=== PATIENT | male | born 1940 | race Caucasian/White ===

== ENCOUNTER → 2017-09-30 | Outpatient (CLI) | payer MEDICARE ==
[2017-09-30 14:45] LABS: Calcium 9.6 mg/dL (8.4-10.2); Magnesium 1.8 mg/dL (1.6-2.3); Potassium 5.3 mmol/L (3.5-5.1)
== END | disposition home or self-care (01) ==
LOC: LABWHC1 12:58
PROVIDERS: ATTEND Nurse Practitioner Adult Health
DX: E78.5 Hyperlipidemia, unspecified (principal); I10 Essential (primary) hypertension
CPT/HCPCS: 36415; 80048; 83721; 83735

== ENCOUNTER → 2017-10-19 | Outpatient (CLI) | payer MEDICARE | END | disposition home or self-care (01) | LOC: RADCTMAIN 15:45 | PROVIDERS: ATTEND Internal Medicine Clinical Cardiac Electrophysiology | DX: I63.59 Cerebral infarction due to unspecified occlusion or stenosis of other cerebral artery (principal) | CPT/HCPCS: 82565; 84520 ==

== ENCOUNTER → 2018-08-24 | Outpatient (CLI) | payer MEDICARE ==
[2018-08-24 12:21] LABS: HCT 47.9 % (39.0-53.0); HGB 15.8 gm/dL (13.0-17.5); MCH 29.1 pg (25.0-35.0); MCV 88.2 fL (80.0-100.0); Mean Platelet Volume 7.4; Platelet Count 239 k/uL (150-450); RBC 5.43 m/uL (4.30-5.90); RDW 14.2 % (11.5-15.5); WBC 10.8 k/uL (3.8-10.6)
[2018-08-24 12:31] LABS: Potassium 4.5 mmol/L (3.5-5.1)
== END | disposition home or self-care (01) ==
LOC: LABPAT 11:06
PROVIDERS: ATTEND Internal Medicine Interventional Cardiology
DX: Z01.812 Encounter for preprocedural laboratory examination (principal); I42.0 Dilated cardiomyopathy
CPT/HCPCS: 36415; 80051; 82565; 84520; 85027

== ENCOUNTER → 2018-09-08 | Day surgery (SDC) | payer MEDICARE ==
[2018-09-01 14:31] VITALS: BMI 25.0
[~2018-09-08] MED LIST: ALPRAZolam 0.25 MG TAB PO PRN; ASPIRIN 325 MG TAB PO ONE; HEPARIN SODIUM 1,000 UN/ML (10ML VL) IV ONE; HEPARIN SODIUM 1,000 UN/ML (10ML VL) ONE; IOPAMIDOL-370 125ML BTL INJ ONE; LIDOCAINE 1% INJ 10MG/ML (20 ML MDV) ONE; LIDOCAINE 1% INJ 10MG/ML (20 ML MDV) SQ ONE; MIDAZOLAM (PF) 2 MG/2 ML VIAL IV ONE; NITROGLYCERIN SL TABS 0.4 MG TAB SUBLINGUAL PRN; RX INFO: IV CONTRAST WAS GIVEN 1 EACH MISC MISCELLANE PRN; SODIUM CHLORIDE 0.9% 1,000 ML IV SCH; SODIUM CHLORIDE 0.9% 1,000 ML in EMPTY BAG 1 BAG IV ONE; VERAPAMIL 2.5 MG/ML 2 ML AMP ONE
[2018-09-08 11:09] LABS: INR 1.1 (<1.2); Prothrombin Time 11.4 sec (9.0-12.0)
[2018-09-08 11:13] VITALS: RESP 18
[2018-09-08] MEDS: VERAPAMIL SYRINGE (5 MG/10 ML) INTRAARTER ONE ×2 (11:42→11:49)
--- NOTE | 2018-09-08 13:14 | CC ---
CARDIAC CATHETERIZATION REPORT DATE OF SERVICE: September 08, 2018 PERFORMING PHYSICIAN: Srikanth Flores MD PROCEDURE PERFORMED: 1. Selective right and left coronary angiogram. 2. Left heart catheterization. INDICATION: This is a 77-year-old gentleman who sees Dr. Jung in the office as an outpatient who was experiencing exertional chest discomfort and shortness of breath and the echocardiogram showed cardiomyopathy. Because of that, coronary angiogram was advised. APPROACH: Right radial artery. COMPLICATION: None. LEVEL OF SEDATION: Moderate with sedation length of 14 minutes. PROCEDURE DESCRIPTION: After obtaining an informed consent, the patient was brought to the cardiac laborer general. The right radial artery was cannulated using micropuncture technique and a micropuncture wire passed easily then I placed a 5-Portuguese sheath in the right radial artery. After that I gave the patient 2 mg of verapamil IA and 7000 units of heparin IV. Selective right and left coronary angiogram performed using JR4 and JL3.5 catheters. Then I did left heart catheterization using the JL4, which crossed the aortic valve. Then I did pullback across aortic valve. The procedure was completed without any complication. SELECTIVE CORONARY ANGIOGRAM: 1. The right coronary artery is a large caliber vessel. It is a dominant vessel. It has mild disease in the proximal portion. 2. The left main appeared to be angiographically normal. It bifurcates into left circumflex, ramus intermedius, and left anterior descending artery. 3. The left circumflex is a large caliber vessel. It is a dominant vessel and appears to be angiographically normal. In the midportion, it gives rise into first OM branch which appeared to be normal and mid and distally bifurcates into PDA and PLV branches both appeared to be angiographically normal. 4. The ramus intermedius is a large caliber vessel, seems to be angiographically normal. 5. The LAD: The LAD is a large caliber vessel and seems to be angiographically normal and reached the apex. In the proximal portion gives rise into a large diagonal branch which has mild disease in its ostium. HEMODYNAMICS: The left ventricular end-diastolic pressure was about 18 mmHg without significant gradient across the aortic valve. CONCLUSION: Mild nonobstructive coronary artery disease. POSTPROCEDURE MANAGEMENT: The patient is going to be discharged and follow up with Dr. Jung. MMODL / IJN: [id number] /
[2018-09-08 17:56] VITALS: BP 114/64; PULSE 76
== END | disposition home or self-care (01) ==
LOC: CATHCVL 09:53
PROVIDERS: ATTEND Internal Medicine Interventional Cardiology
DX: I25.10 Atherosclerotic heart disease of native coronary artery without angina pectoris (principal); I42.0 Dilated cardiomyopathy; E78.5 Hyperlipidemia, unspecified; I49.3 Ventricular premature depolarization; E78.00 Pure hypercholesterolemia, unspecified; I10 Essential (primary) hypertension; I48.0 Paroxysmal atrial fibrillation; Z79.82 Long term (current) use of aspirin; Z79.01 Long term (current) use of anticoagulants; Z79.899 Other long term (current) drug therapy
CPT/HCPCS: 85610; 93458; J2001; J1644; Q9967; J2250

== ENCOUNTER → 2019-03-30 | Outpatient (CLI) | payer MEDICARE ==
--- NOTE | 2019-03-31 13:26 | MM ---
Reason for exam: screening (asymptomatic). Last mammogram was performed 1 year and 4 months ago. History: Family history of breast cancer in 2 sisters and breast cancer in brother. Excisional biopsy of the left breast, November 30, 2017. Physical Findings: A clinical breast exam by your physician is recommended on an annual basis and results should be correlated with mammographic findings. MG 3D Screening Mammo W/Cad Bilateral CC and MLO view(s) were taken. Prior study comparison: November 23, 2017, mammogram, performed at [facility]. Moderate bilateral symmetric gynecomastia. Left biopsy marker noted. ASSESSMENT: Benign, BI-RAD 2 RECOMMENDATION: Clinical management of both breasts. Manage patient on a clinical basis.
== END | disposition home or self-care (01) ==
LOC: RADMAMWWP 16:10
PROVIDERS: ATTEND Family Medicine
DX: Z12.31 Encounter for screening mammogram for malignant neoplasm of breast (principal)
CPT/HCPCS: 77063; 77067

== ENCOUNTER → 2019-11-25 | Outpatient (CLI) | payer MEDICARE ==
[2019-11-25 16:37] LABS: African American GFR (CKD) 66.7 (60.0-200.0); Anion Gap 9.8 mmol/L (4.00-12.00); Calcium 9.1 mg/dL (8.7-10.3); Carbon Dioxide 25.2 mmol/L (21.6-31.8); Non-African American GFR(CKD) 57.6 (60.0-200.0); Potassium 4.5 mmol/L (3.5-5.5)
== END | disposition home or self-care (01) ==
LOC: LABWHC1 09:40
PROVIDERS: ATTEND Physician Assistant
DX: I10 Essential (primary) hypertension (principal)
CPT/HCPCS: 36415; 80048; 84443

== ENCOUNTER → 2020-03-02 | Outpatient (CLI) | payer MEDICARE | END | disposition home or self-care (01) | LOC: LABWHC1 09:50 | PROVIDERS: ATTEND Family Medicine | DX: Z20.828 Contact with and (suspected) exposure to other viral communicable diseases (principal) | CPT/HCPCS: U0003; C9803 ==

== ENCOUNTER 2021-10-02 07:30 | Inpatient (IN) | payer MEDICARE ==
[2021-10-08 09:00] VITALS: BMI 25.2
[2021-10-09] MEDS ORDERED: ALPRAZolam 0.5 MG TAB PO PRN (06:01)
[2021-10-09] MEDS ORDERED: ALPRAZolam 0.25 MG TAB PO PRN (06:01)
[2021-10-09] MEDS ORDERED: NITROGLYCERIN SL TABS 0.4 MG TAB SUBLINGUAL PRN (06:01)
[2021-10-09] MEDS ORDERED: ASPIRIN 325 MG TAB PO PRN (06:01)
[2021-10-09] MEDS ORDERED: SODIUM CHLORIDE 0.9% 1,000 ML in EMPTY BAG 1 BAG IV ONE (06:01)
[2021-10-09] MEDS ORDERED: CLOPIDOGREL 75 MG TAB PO PRN (06:01)
[2021-10-09] MEDS ORDERED: ceFAZolin 2 GM in SODIUM CHLORIDE 0.9% 500 ML 500 ML IRRIGATION PRN (06:01)
[2021-10-09 10:06] LABS: Basophils # (A) 0.1 k/uL (0-0.2); Basophils % (A) 1 %; Eosinophils # (A) 0.3 k/uL (0-0.7); Eosinophils % (A) 3 %; HCT 45.9 % (39.0-53.0); HGB 15.4 gm/dL (13.0-17.5); Lymphocytes # (A) 1.2 k/uL (1.0-4.8); Lymphocytes % (A) 12 %; MCH 30.6 pg (25.0-35.0); MCHC 33.4 g/dL (31.0-37.0); MCV 91.4 fL (80.0-100.0); Mean Platelet Volume 7.7; Monocytes # (A) 0.8 k/uL (0-1.0); Monocytes % (A) 8 %; Neutrophils # (A) 7.7 k/uL (1.3-7.7); Neutrophils % (A) 75 %; Platelet Count 217 k/uL (150-450); RBC 5.02 m/uL (4.30-5.90); RDW 14.2 % (11.5-15.5); WBC 10.2 k/uL (3.8-10.6)
[2021-10-09 10:12] LABS: INR 1.3 (<1.2); Prothrombin Time 13.5 sec (9.0-12.0)
[2021-10-09 10:13] VITALS: RESP 18; TEMP 97.8
[2021-10-09 10:24] LABS: Calcium 8.8 mg/dL (8.4-10.2); Potassium 4.3 mmol/L (3.5-5.1)
[2021-10-09] MEDS ORDERED: LIDOCAINE 1% INJ 10MG/ML (30 ML VIAL-PF) SQ ONE (11:25)
[2021-10-09] MEDS ORDERED: HEPARIN SODIUM 1,000 UN/ML (10ML VL) IV ONE (11:37)
[2021-10-09] MEDS ORDERED: IOPAMIDOL-370 125ML BTL INJ ONE (12:07)
--- NOTE | 2021-10-09 12:24 | IR ---
EXAMINATION TYPE: IR angio carotid cereb BILAT DATE OF EXAM: 10/09/2021 COMPARISON: NONE HISTORY: Fluoroscopy time. Fluoroscopy was provided to the referring clinician.
--- NOTE | 2021-10-09 13:44 | P.PCN ---
Description of Procedure: DESCRIPTION OF PROCEDURE(S): PROCEDURES PERFORMED: Ascending aortic root angiography, bilateral selective carotid angiography INDICATION: Moderate to severe carotid stenosis HISTORY: Patient is pleasant 80-year-old male with a history of carotid stenosis. Ultrasound showed more moderate range less than 79% stenosis however CAT scan showed concern of nearly occlusive left internal carotid artery and mention of obstructive right internal carotid artery stenosis. Therefore angiogram with possible stenting was recommended. CONSENT:I have discussed the risks, benefits and alternative therapies for the above-mentioned procedure and for both sedation/analgesia as well as necessary blood product administration, if indicated, as they pertain to this patient. The patient has indicated understanding and acceptance of the risks and procedures discussed. PROCEDURE: After the risks, benefits and alternatives of the above mentioned procedure explained in detail with the patient, informed consent was obtained. Patient was taken to the catheterization lab and prepped and draped in usual fashion. 1% lidocaine was used to anesthetize the right femoral area. A 6- Marshallese sheath was placed in the right femoral artery using modified Seldinger technique. A 5-Marshallese pigtail catheter was inserted to the ascending aorta and DSA imaging was obtained. Next using VTK catheter the proximal right and left internal carotid arteries were engaged and selective angiography was performed. Angiography showed moderate disease and by measurement was 60% stenosis at its greatest. Therefore no intervention was recommended. A right femoral angiogram was performed and anatomoy was suitable for closure. A 6Fr Angioseal was placed with hemostasis achieved. The patient tolerated the procedure well. Patient was transported back to the post catheterization holding area in stable condition. Conscious Sedation: Patient was monitored under the direct supervision of vision of myself for conscious sedation using Versed and fentanyl for a total duration of 24 minutes ASCENDING AORTA: There is no significant aneurysm or stenosis. Right common carotid: There is no significant right common carotid artery stenosis Right internal carotid artery: There is calcified proximal ASHUTOSH 40% stenosis and otherwise and disease Left common carotid: There is no significant left common carotid artery stenosis Left internal carotid artery: There is a long tubular 60% left internal carotid artery stenosis. FINAL IMPRESSION: 1. Bilateral carotid artery stenosis as described above including 40% right internal carotid artery stenosis and 60% left internal carotid artery stenosis. PLAN: 1. Aggressive risk factor modification per most recent ACC/AHA guidelines. 2. Suspect over estimation by CTA related to blooming artifact from calcification. No significant obstructive disease and therefore given patient is asymptomatic continue with medical therapy.
[2021-10-09 17:12] VITALS: BP 118/67; PULSE 74
== END 2021-10-09 17:12 | disposition home or self-care (01) | DRG 68 ==
LOC: 2ORMAIN 10-09 09:21
PROVIDERS: ADMIT Internal Medicine; ATTEND Internal Medicine
PROC: B3101ZZ Fluoroscopy of Thoracic Aorta using Low Osmolar Contrast (ICD-10-PCS; principal; 2021-10-09 11:15)
PROC: B41F1ZZ Fluoroscopy of Right Lower Extremity Arteries using Low Osmolar Contrast (ICD-10-PCS; principal; 2021-10-09 11:15)
PROC: B3181ZZ Fluoroscopy of Bilateral Internal Carotid Arteries using Low Osmolar Contrast (ICD-10-PCS; principal; 2021-10-09 11:15)
DX: I65.23 Occlusion and stenosis of bilateral carotid arteries (principal); I48.19 Other persistent atrial fibrillation; I42.8 Other cardiomyopathies; I47.1 Supraventricular tachycardia; I10 Essential (primary) hypertension; E78.5 Hyperlipidemia, unspecified; Z53.8 Procedure and treatment not carried out for other reasons; Z20.822 Contact with and (suspected) exposure to COVID-19; I49.3 Ventricular premature depolarization; Z79.82 Long term (current) use of aspirin; Z79.01 Long term (current) use of anticoagulants; Z79.899 Other long term (current) drug therapy
CPT/HCPCS: 80048; 85025; 85610; 86850; 86900; 86901; 87635

== ENCOUNTER 2022-07-06 20:37 | Emergency (ER) | payer MEDICARE ==
[2022-07-06 20:43] VITALS: TEMP 97.7
[2022-07-06] MEDS ORDERED: METOPROLOL TARTRATE 5 MG/5 ML VIAL IVP STA (21:02)
--- NOTE | 2022-07-06 21:04 | ED ---
General Adult HPI - General Chief complaint: Chest Pain Stated complaint: Chest Pain,ABD pain,SOB Time Seen by Provider: 07/06/22 20:55 Source: patient Mode of arrival: ambulatory Limitations: no limitations - History of Present Illness Initial comments: Patient presents to the ED with his step son and [id number] for evaluation. Patient states that he has had suprapubic/right lower quadrant abdominal pain for the past 24 hours or so. Patient rates his pain is 5/10 in severity. Patient also states that he had chest pain about 12 hours ago, but he states that he has not had any chest pain since then. Patient has a history of atrial fibrillation and he is on warfarin anticoagulation therapy. Patient denies trauma or injury, fever or chills, headache, focal numbness/weakness/neuro deficit, chest pain currently, neck/arm/jaw/back pain, pleuritic pain, dyspnea, cough or cold symptoms, palpitations, dizziness, nausea/vomiting/diarrhea, con stipation, bloody or melanotic stool, dysuria/hematuria/urinary frequency/urinary symptoms, leg or calf swelling or pain, or any other symptoms or complaints. - Related Data Home Medications Medication Instructions Recorded Confirmed Acetaminophen [Tylenol Arthritis] 650 mg PO DAILY 09/01/18 07/06/22 Atorvastatin [Lipitor] 80 mg PO HS 09/01/18 07/06/22 Cholecalciferol [Vitamin D3 (25 25 mcg PO DAILY 09/01/18 07/06/22 Mcg = 1000 Iu)] Irbesartan [Avapro] 300 mg PO HS 09/01/18 07/06/22 Multivitamins, Thera [Multivitamin 1 tab PO DAILY 09/01/18 07/06/22 (formulary)] Omeprazole 20 mg PO DAILY 09/01/18 07/06/22 Oxybutynin Chloride [Ditropan] 5 mg PO DAILY 09/01/18 07/06/22 Warfarin [Coumadin] 2.5 mg PO MOWEFRSA 09/01/18 07/06/22 Aspirin 81 mg PO BID 09/08/18 07/06/22 carvediloL [Coreg] 3.125 mg PO BID 10/01/21 07/06/22 Warfarin [Coumadin] 1.25 mg PO SUTUTH 07/06/22 07/06/22 Allergies Allergy/AdvReac Type Severity Reaction Status Date / Time No Known Allergies Allergy Verified 07/06/22 22:12 Review of Systems ROS Statement: Those systems with pertinent positive or pertinent negative responses have been documented in the HPI. ROS Other: All systems not noted in ROS Statement are negative. Past Medical History Past Medical History: Atrial Fibrillation, GERD/Reflux, Hyperlipidemia, Hypertension, Osteoarthritis (OA), Pneumonia Additional Past Medical History / Comment(s): Hx Pneumonia yrs ago. Carotid stenosis. Dizzy on standing History of Any Multi-Drug Resistant Organisms: None Reported Past Surgical History: Hernia Repair, Orthopedic Surgery Additional Past Surgical History / Comment(s): Bilateral rotator cuff repairs. Past Anesthesia/Blood Transfusion Reactions: No Reported Reaction Past Psychological History: No Psychological Hx Reported Smoking Status: Never smoker Past Alcohol Use History: None Reported Past Drug Use History: None Reported - Past Family History Brother(s) Family Medical History: Cancer Sister(s) Family Medical History: Cancer General Exam Limitations: no limitations General appearance: alert, in no apparent distress Head exam: Present: atraumatic, normocephalic Eye exam: Present: normal appearance, EOMI ENT exam: Present: mucous membranes moist Neck exam: Present: other (Trachea is in midline) Respiratory exam: Present: normal lung sounds bilaterally. Absent: respiratory distress, wheezes, rales, rhonchi, stridor, chest wall tenderness Cardiovascular Exam: Present: tachycardia, irregular rhythm, normal heart sounds, other (Normal radial pulses bilaterally) GI/Abdominal exam: Present: soft, normal bowel sounds, other (Mild suprapubic/right lower quadrant and right upper quadrant abdominal tenderness). Absent: distended, guarding, rebound Extremities exam: Present: other (Negative Homans sign bilaterally). Absent: tenderness, pedal edema, calf tenderness Back exam: Absent: CVA tenderness (R), CVA tenderness (L) Neurological exam: Present: alert, oriented X3. Absent: motor sensory deficit Psychiatric exam: Present: normal affect, normal mood Skin exam: Present: warm, dry, intact, normal color Course Vital Signs 07/06/22 07/06/22 07/06/22 20:40 21:00 21:07 Temperature 97.7 F Pulse Rate 115 H 107 H 116 H Respiratory 20 16 16 Rate Blood Pressure 136/71 112/71 108/80 O2 Sat by Pulse 95 99 98 Oximetry 07/06/22 07/06/22 07/06/22 21:10 21:15 22:00 Temperature Pulse Rate 109 H 98 109 H Respiratory 16 16 16 Rate Blood Pressure 113/66 102/71 105/63 O2 Sat by Pulse 98 96 94 L Oximetry 07/06/22 23:00 Temperature Pulse Rate 104 H Respiratory 16 Rate Blood Pressure 112/67 O2 Sat by Pulse 94 L Oximetry - Reevaluation(s) Reevaluation #1: 07/07/22 00:34 Case, H&P, test results and ED management thus far were discussed with Dr. Lim (general surgery). Given the patient's finding of gallstones on ultrasound and elevated bilirubin level, he recommends transferring the patient to a facility with GI coverage for ERCP. 07/07/22 00:42 Patient states that his pain has improved at this time. Patient continues to have a nonsurgical abdominal exam. Patient and family are aware of the patient's test results and my discussion with Dr. Lim as above. They all agree with ambulance transfer to the [facility] ED at this time since we do not have GI coverage in our hospital at this time. 07/07/22 00:51 Case, H&P, test results, ED management and my discussion with Dr. Lim as above were discussed with Dr. Conley (ED physician at [facility]). He accepts ambulance transfer to the [facility] ED at this time. EKG Findings - EKG Comments: EKG Findings:: ED physician interpretation: Atrial fibrillation with RVR, ventricular rate of 119 bpm, normal QRS duration, normal QT interval, normal axis, no ST or T-wave abnormality Medical Decision Making - Medical Decision Making Was pt. sent in by a medical professional or institution (, PA, LOCAL SALES MANAGER, urgent care, hospital, or longterm...) When possible be specific @ -[No] Did you speak to anyone other than the patient for history (EMS, parent, family, police, friend...)? What history was obtained from this source @ -[No] Did you review nursing and triage notes (agree or disagree)? Why? @ -[I reviewed and agree with nursing and triage notes] Were old charts reviewed (outside hosp., previous admission, EMS record, old EKG, old radiological studies, urgent care reports/EKG's, longterm records)? Report findings @ -[No old charts were reviewed] Differential Diagnosis (chest pain, altered mental status, abdominal pain women, abdominal pain men, vaginal bleeding, weakness, fever, dyspnea, syncope, headache, dizziness, GI bleed, back pain, seizure, CVA, palpatations, mental health, musculoskeletal)? @ -[Chest pain, ACS, NH, pneumothorax, pleurisy, pleural effusion, chest wall pain, GERD, abdominal pain, appendicitis, cholecystitis, diverticulitis, colitis, enteritis, ischemic bowel, UTI, renal colic, pyelonephritis, dysrhythmia, atrial fibrillation] EKG interpreted by me (3pts min.). @ -[As above] X-rays interpreted by me (1pt min.). @ -[Chest x-ray was reviewed myself, and I agree with the radiologist's interpretation as above.] CT interpreted by me (1pt min.). @ -[CT abdomen/pelvis was reviewed myself, and I agree with the radiologist's interpretation as above.] U/S interpreted by me (1pt. min.). @ -[No] What testing was considered but not performed or refused? (CT, X-rays, U/S, labs)? Why? @ -[None] What meds were considered but not given or refused? Why? @ -[None] Did you discuss the management of the patient with other professionals (professionals i.e. , PA, LOCAL SALES MANAGER, lab, RT, psych nurse, social media director, criminal justice lawyer, teacher, highway patrol officer, case finisher)? Give summary @ -[As above] Was smoking cessation discussed for >3mins.? @ -[No] Was critical care preformed (if so, how long)? @ -[No] Were there social determinants of health that impacted care today? How? (Home lessness, low income, unemployed, alcoholism, drug addiction, transportation, low edu. Level, literacy, decrease access to med. care, chcf, rehab)? @ -[No] Was there de-escalation of care discussed even if they declined (Discuss DNR or withdrawal of care, Hospice)? DNR status @ -[No] What co-morbidities impacted this encounter? (DM, HTN, Smoking, COPD, CAD, Cancer, CVA, ARF, Chemo, Hep., AIDS, mental health diagnosis, sleep apnea, morbid obesity)? @ -[Atrial fibrillation on warfarin anticoagulation.] Was patient admitted / discharged? Hospital course, mention meds given and route , prescriptions, significant lab abnormalities, going to OR and other pertinent info. @ -[Patient's EKG shows A. fib with RVR. Patient's rate has been controlled with IV metoprolol treatment in the ED. Patient's initial troponin is negative. Patient's abdominal imaging reveals cholelithiasis with findings suspicious for cholecystitis. Patient has a leukocytosis of 27,500. Patient's lactate is within normal limits. Patient's bilirubin is also elevated. Patient's UA is s uggestive of a UTI as well. Patient has been treated with IV Zosyn in the ED. Case was discussed with the on-call general surgeon who has recommended transferring the patient to a facility with GI coverage for ERCP. Case was discussed with the ED physician [facility], and he has accepted ambulance transfer to their ED for GI evaluation. Patient and family agree with this plan.] Undiagnosed new problem with uncertain prognosis? @ -[No] Drug Therapy requiring intensive monitoring for toxicity (Heparin, Nitro, Insulin, Cardizem)? @ -[No] Were any procedures done? @ -[No] Diagnosis/symptom? @ -[Cholelithiasis with suspected cholecystitis] Acute, or Chronic, or Acute on Chronic? @ -[Acute] Uncomplicated (without systemic symptoms) or Complicated (systemic symptoms)? @ -[default] Side effects of treatment? @ -[No] Exacerbation, Progression, or Severe Exacerbation? @ -[No] Poses a threat to life or bodily function? How? (Chest pain, USA, NH, pneumonia, PE, COPD, DKA, ARF, appy, cholecystitis, CVA, Diverticulitis, Homicidal, Suicidal, threat to staff... and all critical care pts) @ -[No] Diagnosis/symptom? @ -UTI Acute, or Chronic, or Acute on Chronic? @ -Acute Uncomplicated (without systemic symptoms) or Complicated (systemic symptoms)? @ -[default] Side effects of treatment? @ -[none] Exacerbation, Progression, or Severe Exacerbation] @ -[no] Poses a threat to life or bodily function? @ -[no] Diagnosis/symptom? @ -Chest pain Acute, or Chronic, or Acute on Chronic? @ -Acute Uncomplicated (without systemic symptoms) or Complicated (systemic symptoms)? @ -[default] Side effects of treatment? @ -[none] Exacerbation, Progression, or Severe Exacerbation] @ -[no] Poses a threat to life or bodily function? @ -[no] Diagnosis/symptom? @ -Atrial fibrillation Acute, or Chronic, or Acute on Chronic? @ -Chronic Uncomplicated (without systemic symptoms) or Complicated (systemic symptoms)? @ -[default] Side effects of treatment? @ -[none] Exacerbation, Progression, or Severe Exacerbation] @ -[no] Poses a threat to life or bodily function? @ -[no] - Lab Data Result diagrams: 07/06/22 21:03 07/06/22 21:03 Lab Results 07/06/22 07/06/22 07/06/22 Range/Units 21:03 21:03 21:03 WBC 27.5 H (3.8-10.6) k/uL RBC 4.74 (4.30-5.90) m/uL Hgb 14.8 (13.0-17.5) gm/dL Hct 42.6 (39.0-53.0) % MCV 90.0 (80.0-100.0) fL MCH 31.2 (25.0-35.0) pg MCHC 34.7 (31.0-37.0) g/dL RDW 14.8 (11.5-15.5) % Plt Count 164 (150-450) k/uL MPV 8.0 Neutrophils % 88 % Lymphocytes % 3 % Monocytes % 7 % Eosinophils % 1 % Basophils % 0 % Neutrophils # 24.2 H (1.3-7.7) k/uL Lymphocytes # 0.9 L (1.0-4.8) k/uL Monocytes # 1.9 H (0-1.0) k/uL Eosinophils # 0.1 (0-0.7) k/uL Basophils # 0.0 (0-0.2) k/uL PT 13.4 H (9.0-12.0) sec INR 1.3 H (<1.2) APTT 30.7 H (22.0-30.0) sec Sodium 132 L (137-145) mmol/L Potassium 4.4 (3.5-5.1) mmol/L Chloride 101 (98-107) mmol/L Carbon Dioxide 22 (22-30) mmol/L Anion Gap 9 mmol/L BUN 21 H (9-20) mg/dL Creatinine 0.92 (0.66-1.25) mg/dL Est GFR (CKD-EPI)AfAm >90 (>60 ml/min/1.73 sqM) Est GFR (CKD-EPI)NonAf 78 (>60 ml/min/1.73 sqM) Glucose 96 (74-99) mg/dL Plasma Lactic Acid [place] (0.7-2.0) mmol/L Calcium 8.4 (8.4-10.2) mg/dL Magnesium 1.3 L (1.6-2.3) mg/dL Total Bilirubin 5.9 H (0.2-1.3) mg/dL AST 25 (17-59) U/L ALT 24 (4-49) U/L Alkaline Phosphatase 61 (38-126) U/L Troponin I (0.000-0.034) ng/mL NT-Pro-B Natriuret Pep pg/mL Total Protein 6.5 (6.3-8.2) g/dL Albumin 3.7 (3.5-5.0) g/dL Lipase 29 (23-300) U/L Urine Color Urine Appearance (Clear) Urine pH (5.0-8.0) Ur Specific [place] (1.001-1.035) Urine Protein (Negative) Urine Glucose (UA) (Negative) Urine Ketones (Negative) Urine Blood (Negative) Urine Nitrite (Negative) Urine Bilirubin (Negative) Urine Urobilinogen (<2.0) mg/dL Ur Leukocyte Esterase (Negative) Urine RBC (0-5) /hpf Urine WBC (0-5) /hpf Ur Squamous Epith Cells (0-4) /hpf Urine Bacteria (None) /hpf Urine Mucus (None) /hpf 07/06/22 07/06/22 07/06/22 Range/Units 21:03 21:03 23:46 WBC (3.8-10.6) k/uL RBC (4.30-5.90) m/uL Hgb (13.0-17.5) gm/dL Hct (39.0-53.0) % MCV (80.0-100.0) fL MCH (25.0-35.0) pg MCHC (31.0-37.0) g/dL RDW (11.5-15.5) % Plt Count (150-450) k/uL MPV Neutrophils % % Lymphocytes % % Monocytes % % Eosinophils % % Basophils % % Neutrophils # (1.3-7.7) k/uL Lymphocytes # (1.0-4.8) k/uL Monocytes # (0-1.0) k/uL Eosinophils # (0-0.7) k/uL Basophils # (0-0.2) k/uL PT (9.0-12.0) sec INR (<1.2) APTT (22.0-30.0) sec Sodium (137-145) mmol/L Potassium (3.5-5.1) mmol/L Chloride (98-107) mmol/L Carbon Dioxide (22-30) mmol/L Anion Gap mmol/L BUN (9-20) mg/dL Creatinine (0.66-1.25) mg/dL Est GFR (CKD-EPI)AfAm (>60 ml/min/1.73 sqM) Est GFR (CKD-EPI)NonAf (>60 ml/min/1.73 sqM) Glucose (74-99) mg/dL Plasma Lactic Acid [place] (0.7-2.0) mmol/L Calcium (8.4-10.2) mg/dL Magnesium (1.6-2.3) mg/dL Total Bilirubin (0.2-1.3) mg/dL AST (17-59) U/L ALT (4-49) U/L Alkaline Phosphatase (38-126) U/L Troponin I 0.012 (0.000-0.034) ng/mL NT-Pro-B Natriuret Pep 2810 pg/mL Total Protein (6.3-8.2) g/dL Albumin (3.5-5.0) g/dL Lipase (23-300) U/L Urine Color Yellow Urine Appearance Clear (Clear) Urine pH 7.0 (5.0-8.0) Ur Specific [place] 1.022 (1.001-1.035) Urine Protein 1+ H (Negative) Urine Glucose (UA) Negative (Negative) Urine Ketones Negative (Negative) Urine Blood Small H (Negative) Urine Nitrite Negative (Negative) Urine Bilirubin Negative (Negative) Urine Urobilinogen 2.0 (<2.0) mg/dL Ur Leukocyte Esterase Small H (Negative) Urine RBC 40 H (0-5) /hpf Urine WBC 30 H (0-5) /hpf Ur Squamous Epith Cells <1 (0-4) /hpf Urine Bacteria Many H (None) /hpf Urine Mucus Rare H (None) /hpf 07/06/22 Range/Units 23:57 WBC (3.8-10.6) k/uL RBC (4.30-5.90) m/uL Hgb (13.0-17.5) gm/dL Hct (39.0-53.0) % MCV (80.0-100.0) fL MCH (25.0-35.0) pg MCHC (31.0-37.0) g/dL RDW (11.5-15.5) % Plt Count (150-450) k/uL MPV Neutrophils % % Lymphocytes % % Monocytes % % Eosinophils % % Basophils % % Neutrophils # (1.3-7.7) k/uL Lymphocytes # (1.0-4.8) k/uL Monocytes # (0-1.0) k/uL Eosinophils # (0-0.7) k/uL Basophils # (0-0.2) k/uL PT (9.0-12.0) sec INR (<1.2) APTT (22.0-30.0) sec Sodium (137-145) mmol/L Potassium (3.5-5.1) mmol/L Chloride (98-107) mmol/L Carbon Dioxide (22-30) mmol/L Anion Gap mmol/L BUN (9-20) mg/dL Creatinine (0.66-1.25) mg/dL Est GFR (CKD-EPI)AfAm (>60 ml/min/1.73 sqM) Est GFR (CKD-EPI)NonAf (>60 ml/min/1.73 sqM) Glucose (74-99) mg/dL Plasma Lactic Acid [place] 0.9 (0.7-2.0) mmol/L Calcium (8.4-10.2) mg/dL Magnesium (1.6-2.3) mg/dL Total Bilirubin (0.2-1.3) mg/dL AST (17-59) U/L ALT (4-49) U/L Alkaline Phosphatase (38-126) U/L Troponin I (0.000-0.034) ng/mL NT-Pro-B Natriuret Pep pg/mL Total Protein (6.3-8.2) g/dL Albumin (3.5-5.0) g/dL Lipase (23-300) U/L Urine Color Urine Appearance (Clear) Urine pH (5.0-8.0) Ur Specific [place] (1.001-1.035) Urine Protein (Negative) Urine Glucose (UA) (Negative) Urine Ketones (Negative) Urine Blood (Negative) Urine Nitrite (Negative) Urine Bilirubin (Negative) Urine Urobilinogen (<2.0) mg/dL Ur Leukocyte Esterase (Negative) Urine RBC (0-5) /hpf Urine WBC (0-5) /hpf Ur Squamous Epith Cells (0-4) /hpf Urine Bacteria (None) /hpf Urine Mucus (None) /hpf - Radiology Data Chest x-ray: No active cardiopulmonary disease. CT abdomen/pelvis with IV contrast: Atherosclerotic vascular disease. Mild infiltrate and atelectasis at the lung bases. Cholelithiasis. No dilated ducts. Appendix not seen. Enlarged prostate. Gallbladder ultrasound: Gallbladder is somewhat dilated measuring 4.6 cm in diameter. There are gallstones at the gallbladder neck and cholecystitis should be considered. The common bile duct is normal. Disposition Clinical Impression: Chest pain, Atrial fibrillation with RVR, Abdominal pain, Cholelithiasis, UTI (urinary tract infection) Narrative: Suspected cholecystitis Disposition: OTHER INSTITUTION NOT DEFINED Condition: Stable Is patient prescribed a controlled substance at d/c from ED?: No Referrals: Dagoberto Altman MD [Primary Care Provider] - 1-2 days Time of Disposition: 00:56 - Out of Hospital Transfer - Req. Specs Out of Hospital Transfer - Requested Specifics: Other Emergency Center ([facility] ED)
[2022-07-06 21:17] VITALS: RESP 16
--- NOTE | 2022-07-06 21:22 | XR ---
EXAMINATION TYPE: XR chest 1V portable DATE OF EXAM: 07/06/2022 COMPARISON: NONE HISTORY: Chest pain TECHNIQUE: Single view FINDINGS: The heart size is normal. Lungs are clear of consolidation. There is multiple old right-tyrone ed rib fractures. There are no hilar masses. No pleural effusion. There is some coarsening of interst itial markings. IMPRESSION: No active cardiopulmonary disease.
[2022-07-06 21:26] LABS: INR 1.3 (<1.2); Partial Thromboplastin Time 30.7 sec (22.0-30.0); Prothrombin Time 13.4 sec (9.0-12.0)
[2022-07-06] MEDS ORDERED: MORPHINE SULFATE 4 MG/ML SYRINGE IVP STA (21:33)
[2022-07-06 21:34] LABS: ALT 24 U/L (4-49); AST 25 U/L (17-59); African American GFR (CKD) >90 (>60 ml/min/1.73 sqM); Albumin 3.7 g/dL (3.5-5.0); Alkaline Phosphatase 61 U/L (38-126); Anion Gap 9 mmol/L; Blood Urea Nitrogen 21 mg/dL (9-20); Calcium 8.4 mg/dL (8.4-10.2); Carbon Dioxide 22 mmol/L (22-30); Chloride 101 mmol/L (98-107); Glucose 96 mg/dL (74-99); Lipase 29 U/L (23-300); Magnesium 1.3 mg/dL (1.6-2.3); Non-African American GFR(CKD) 78 (>60 ml/min/1.73 sqM); Potassium 4.4 mmol/L (3.5-5.1); Sodium 132 mmol/L (137-145); Total Bilirubin 5.9 mg/dL (0.2-1.3); Total Protein 6.5 g/dL (6.3-8.2)
[2022-07-06 21:39] LABS: Basophils % (A) 0 %; Eosinophils # (A) 0.1 k/uL (0-0.7); Eosinophils % (A) 1 %; HCT 42.6 % (39.0-53.0); HGB 14.8 gm/dL (13.0-17.5); Lymphocytes # (A) 0.9 k/uL (1.0-4.8); Lymphocytes % (A) 3 %; MCH 31.2 pg (25.0-35.0); MCHC 34.7 g/dL (31.0-37.0); Monocytes # (A) 1.9 k/uL (0-1.0); Monocytes % (A) 7 %; Neutrophils # (A) 24.2 k/uL (1.3-7.7); Neutrophils % (A) 88 %; Platelet Count 164 k/uL (150-450); RBC 4.74 m/uL (4.30-5.90); RDW 14.8 % (11.5-15.5); WBC 27.5 k/uL (3.8-10.6)
--- NOTE | 2022-07-06 23:16 | CT ---
EXAMINATION TYPE: CT abdomen pelvis w con DATE OF EXAM: 07/06/2022 COMPARISON: None HISTORY: lower abdominal pain CT DLP: 804.4 mGycm Automated exposure control for dose reduction was used. CONTRAST: Performed with IV Contrast, patient injected with 100 mL of Isovue 370. Images obtained from the diaphragm to the floor the pelvis with the IV contrast. There is some infiltrate and atelectasis at the lung bases. Heart size is normal. No pericardial effu bran. Liver spleen and stomach appear intact. The bile ducts are not dilated. No pancreatic mass. There is small calcified gallstones. No gallbladder wall thickening. There is no adrenal mass. Kidneys show satisfactory contrast opacification. No hydronephrosis. Delaye d images show normal renal excretion. No retroperitoneal adenopathy. The bladder distends smoothly. P rostate is enlarged and measures 6.3 cm. No inguinal hernia. There is no mesenteric edema. No ascites or free air. No evidence of a bowel obstruction. Appendix no t seen. No significant appendix. The lumbar vertebra show normal alignment. There is 50% anterior wedging of L1 vertebra consistent wi th an old fracture. There is multilevel spondylotic changes. No definite acute lumbar spine fracture. Bony pelvis is intact. The hip joints are intact sacroiliac joints are intact IMPRESSION: Atherosclerotic vascular disease. Mild infiltrate and atelectasis at the lung bases. Cholelithiasis. No dilated ducts. Appendix not seen. Enlarged prostate.
[2022-07-07 00:14] LABS: Appearance,Urine Clear (Clear); Bacteria,Urine Many /hpf; Bilirubin,Urine Negative (Negative); Blood,Urine Small (Negative); Color,Urine Yellow; Glucose,Urine (UA) Negative (Negative); Ketones,Urine Negative (Negative); Leukocyte Esterase,Urine Small (Negative); Mucus,Urine Rare /hpf; Nitrite,Urine Negative (Negative); Protein,Urine 1+ (Negative); RBC,Urine 40 /hpf (0-5); Specific Gravity,Urine 1.022 (1.001-1.035); Squamous Epithelial Cell,Urine <1 /hpf (0-4); WBC,Urine 30 /hpf (0-5)
--- NOTE | 2022-07-07 00:24 | US ---
EXAMINATION TYPE: US gallbladder DATE OF EXAM: 07/07/2022 COMPARISON: CT: Today CLINICAL HISTORY: abdominal pain, leukocytosis, elevated bilirubin. abd pain TECHNIQUE: Multiple sonographic images of the right upper quadrant are obtained. 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 Appears wnl Liver: wnl Gallbladder: Stones visualized in the neck of GB Evidence for sonographic Vargas's sign: No CBD: wnl Right Kidney: wnl IMPRESSION: Gallbladder is somewhat dilated measuring 4.6 cm in diameter. There are gallstones at the gallbladder neck and cholecystitis should be considered. The common bile duct is normal.
[2022-07-07] MEDS ORDERED: PIPERACILLIN-TAZOBACTAM 3.375 GM in SODIUM CHLORIDE 0.9% 100 ML IVPB STA (00:25)
[2022-07-07 01:22] VITALS: BP 116/90; PULSE 104
== END 2022-07-07 01:33 | disposition other institution (70) ==
LOC: EC 20:37
DX: R07.89 Other chest pain (principal); I48.91 Unspecified atrial fibrillation; R10.9 Unspecified abdominal pain; K80.20 Calculus of gallbladder without cholecystitis without obstruction; N39.0 Urinary tract infection, site not specified; E78.5 Hyperlipidemia, unspecified; I10 Essential (primary) hypertension; M19.90 Unspecified osteoarthritis, unspecified site; Z79.82 Long term (current) use of aspirin; Z79.01 Long term (current) use of anticoagulants; Z79.899 Other long term (current) drug therapy
CPT/HCPCS: 36415; 93005; 83880; 80053; 83690; 83735; 84484; 85025; 85610; 85730; 71045; 74177; 99285; 96365; 96375 ×2; J2270; Q9967; 76705; 81001; 83605; 87040; 87086

== ENCOUNTER 2022-09-11 09:37 | Day surgery (SDC) | payer MEDICARE ==
[2022-09-10 09:03] VITALS: BMI 22.8
[~2022-09-11 09:37] MED LIST changes: -ALPRAZolam 0.25 MG TAB PO PRN; -ASPIRIN 325 MG TAB PO ONE; -HEPARIN SODIUM 1,000 UN/ML (10ML VL) IV ONE; -HEPARIN SODIUM 1,000 UN/ML (10ML VL) ONE; -IOPAMIDOL-370 125ML BTL INJ ONE; -LIDOCAINE 1% INJ 10MG/ML (20 ML MDV) ONE; -LIDOCAINE 1% INJ 10MG/ML (20 ML MDV) SQ ONE; -MIDAZOLAM (PF) 2 MG/2 ML VIAL IV ONE; -NITROGLYCERIN SL TABS 0.4 MG TAB SUBLINGUAL PRN; -RX INFO: IV CONTRAST WAS GIVEN 1 EACH MISC MISCELLANE PRN; -SODIUM CHLORIDE 0.9% 1,000 ML in EMPTY BAG 1 BAG IV ONE; -VERAPAMIL 2.5 MG/ML 2 ML AMP ONE
[2022-09-11] MEDS ORDERED: SODIUM CHLORIDE 0.9% 500 ML 500 ML IV ONE (09:50)
[2022-09-11 10:07] VITALS: RESP 16; TEMP 95
[2022-09-11] MEDS ORDERED: fentaNYL (PF) 50 MCG/ML 2 ML AMP ONE (11:20)
[2022-09-11] MEDS ORDERED: fentaNYL (PF) 50 MCG/ML 2 ML AMP IV ONE (11:21)
[2022-09-11] MEDS ORDERED: LIDOCAINE 1% INJ 10MG/ML (20 ML MDV) SQ ONE (11:21)
[2022-09-11 16:39] VITALS: BP 162/86; PULSE 75
--- NOTE | 2022-09-29 16:22 | P.EPPROC ---
- EP Procedure Note Electrophysiology Procedure Note: Loop monitor implant Primary physicians: Dr. Altman Dental Laboratory Manager: Dr. Jung Indication: Recurrent syncope, persistent atrial fibrillation, history of nonischemic cardio myopathy Patient was brought to the EP lab in a fasting state. Written informed consent was obtained prior to the procedure. The left pectoral area was prepped and draped per protocol. Intravenous antibiotic was administered preoperatively. A subcutaneous Loop monitor was implanted successfully and the wound was closed per protocol. The device was programmed to detect significant jeramy- arrhythmic and tachy-arrhythmic events, per protocol. Device and programming details: Syncope protocol
== END 2022-09-11 12:45 | disposition home or self-care (01) ==
LOC: CATHEP 09:37
PROVIDERS: ATTEND Internal Medicine Clinical Cardiac Electrophysiology
DX: I48.19 Other persistent atrial fibrillation (principal); I65.23 Occlusion and stenosis of bilateral carotid arteries; I10 Essential (primary) hypertension; E78.5 Hyperlipidemia, unspecified; I49.3 Ventricular premature depolarization; Z79.899 Other long term (current) drug therapy
CPT/HCPCS: 33285; C1764; J0690; J2001; J3010

== ENCOUNTER 2022-11-17 18:26 | Emergency (ER) | payer MEDICARE ==
[2022-11-17 18:32] VITALS: PULSE 99; TEMP 98.2
[2022-11-17] MEDS ORDERED: DIPH,PERTUS(ACELL)TETVAC-LF 0.5 ML VIAL IM ONE (18:50)
[2022-11-17] MEDS ORDERED: LIDOCAINE/EPINEPHR/TETRACAINE 5 ML BOTTLE TOPICAL ONE (19:12)
--- NOTE | 2022-11-17 19:15 | ED ---
Wound/Laceration HPI - General Chief Complaint: Wound/Laceration Stated Complaint: fall, head injury Time Seen by Provider: 11/17/22 18:38 Source: patient, family Mode of arrival: wheelchair - History of Present Illness Initial Comments: 81-year-old male presenting with chief complaint of head injury. Patient states that he tripped and fell causing him to hit his head on a tree stump. He has a laceration to the forehead. He also has what appears to be a subconjunctival hemmorhage. He is unsure if he had any loss of consciousness. He takes Xarelto. Unsure when his last tetanus shot was. He has no other complaints at this time. No chest pain, difficulty breathing, abdominal pain, nausea, vomiting, dizziness, vision or hearing changes, numbness, tingling, weakness. - Related Data Home Medications Medication Instructions Recorded Confirmed Multivitamins, Thera [Multivitamin 1 tab PO DAILY 09/01/18 11/17/22 (formulary)] Omeprazole 20 mg PO DAILY 09/01/18 11/17/22 Aspirin 81 mg PO BID 09/08/18 11/17/22 carvediloL [Coreg] 3.125 mg PO BID 10/01/21 11/17/22 Finasteride [Proscar] 5 mg PO DAILY 09/11/22 11/17/22 Rivaroxaban [Xarelto] 20 mg PO HS 09/11/22 11/17/22 Zolpidem [Ambien] 5 mg PO HS PRN 09/11/22 11/17/22 Atorvastatin Calcium [Lipitor] 80 mg PO HS 11/17/22 11/17/22 Cholecalciferol [Vitamin D3 (25 50 mcg PO DAILY 11/17/22 11/17/22 Mcg = 1000 Iu)] Allergies Allergy/AdvReac Type Severity Reaction Status Date / Time No Known Allergies Allergy Verified 11/17/22 20:04 Review of Systems ROS Statement: Those systems with pertinent positive or pertinent negative responses have been documented in the HPI. ROS Other: All systems not noted in ROS Statement are negative. Past Medical History Past Medical History: Atrial Fibrillation, GERD/Reflux, Hearing Disorder / Deafness, Hyperlipidemia, Hypertension, Osteoarthritis (OA), Pneumonia Additional Past Medical History / Comment(s): See Dr Jung's H&P,has d ifficulty reading,was seen @ [facility] ER June 2022 and transferred to [facility] not sure if had any procedures at that time unable to reach Paula Caldwell stepdaughter/POA who was with him, Hx Pneumonia yrs ago. Carotid stenosis. Dizzy on standing History of Any Multi-Drug Resistant Organisms: None Reported Past Surgical History: Hernia Repair, Orthopedic Surgery Additional Past Surgical History / Comment(s): Bilateral rotator cuff repairs. Past Anesthesia/Blood Transfusion Reactions: No Reported Reaction Past Psychological History: No Psychological Hx Reported Smoking Status: Never smoker - Past Family History Brother(s) Family Medical History: Cancer Sister(s) Family Medical History: Cancer General Exam Limitations: no limitations General appearance: alert, in no apparent distress Head exam: Present: normocephalic Expanded Head exam: Present: laceration (2 cm laceration to the forehead) Eye exam: Present: PERRL, EOMI. Absent: periorbital swelling, periorbital tenderness Expanded Pupils: Regular, Round: Bilateral, Reactive: Bilateral Sclera/Conjunctival: Hemorrhage: Right Neck exam: Present: normal inspection, full ROM Respiratory exam: Present: normal lung sounds bilaterally. Absent: respiratory distress, wheezes, rales, rhonchi, stridor Cardiovascular Exam: Present: regular rate, normal rhythm, normal heart sounds. Absent: systolic murmur, diastolic murmur, rubs, gallop, clicks Neurological exam: Present: alert, oriented X3, CN II-XII intact Expanded Patient oriented to: Present: person, place, time Speech: Present: fluid speech Cranial nerves: EOM's Intact: Normal Motor strength exam: RUE: 5, LUE: 5, RLE: 5, LLE: 5 Eye Response: (4) open spontaneously Motor Response: (6) obeys commands Verbal Response: (5) oriented Bradley Total: 15 Psychiatric exam: Present: normal affect, normal mood Skin exam: Present: warm, dry, normal color. Absent: rash Expanded Type of lesion: Present: laceration (Laceration to the forehead 2 cm) Course Vital Signs 11/17/22 11/17/22 11/17/22 18:27 19:38 20:46 Temperature 98.2 F Pulse Rate 99 Respiratory 18 19 18 Rate Blood Pressure 151/69 136/88 148/86 O2 Sat by Pulse 95 Oximetry Procedures - Laceration Laceration #1 Consent Obtained: verbal consent Indication: laceration Site: face Size (cm): 2 Description: linear Depth: simple, single layer Anesthetic Used: lidocaine 1%, without epi Anesthesia Technique: local infiltration Type of Sutures: nylon Size of Sutures: 6-0 Number of Sutures: 3 Technique: simple, interrupted Patient Tolerated Procedure: well Medical Decision Making - Medical Decision Making Was pt. sent in by a medical professional or institution (, PA, METAL CLEANER, urgent care, hospital, or custodial...) When possible be specific @ -No Did you speak to anyone other than the patient for history (EMS, parent, family, police, friend...)? What history was obtained from this source @ -No Did you review nursing and triage notes (agree or disagree)? Why? @ -I reviewed and agree with nursing and triage notes Were old charts reviewed (outside hosp., previous admission, EMS record, old EKG, old radiological studies, urgent care reports/EKG's, custodial records)? Report findings @ -No old charts were reviewed Differential Diagnosis (chest pain, altered mental status, abdominal pain women, abdominal pain men, vaginal bleeding, weakness, fever, dyspnea, syncope, headache, dizziness, GI bleed, back pain, seizure, CVA, palpatations, mental health, musculoskeletal)? @ -Differential includes intracranial hemorrhage, cervical spine fracture, skull fracture, laceration, concussion, this is not an all-inclusive list EKG interpreted by me (3pts min.). @ -As above X-rays interpreted by me (1pt min.). @ -None done CT interpreted by me (1pt min.). @ -No acute intracranial process. Nonspecific be better changes likely secondary to chronic small vessel ischemic disease. No evidence of cervical spine fracture. Mild to moderate multilevel degenerative disc disease. Right laceration to the forehead superiorly. Mild edema is more inferior to the orbit. The globes are intact. U/S interpreted by me (1pt. min.). @ -None done What testing was considered but not performed or refused? (CT, X-rays, U/S, labs)? Why? @ -None What meds were considered but not given or refused? Why? @ -None Did you discuss the management of the patient with other professionals (professionals i.e. , PA, METAL CLEANER, lab, RT, psych nurse, social media content manager, passenger solicitor, teacher, adult parole officer, assistant case manager)? Give summary @ -No Was smoking cessation discussed for >3mins.? @ -No Was critical care preformed (if so, how long)? @ -No Were there social determinants of health that impacted care today? How? (Homelessness, low income, unemployed, alcoholism, drug addiction, transportation, low edu. Level, literacy, decrease access to med. care, usp, rehab)? @ -No Was there de-escalation of care discussed even if they declined (Discuss DNR or withdrawal of care, Hospice)? DNR status @ -No What co-morbidities impacted this encounter? (DM, HTN, Smoking, COPD, CAD, Cancer, CVA, ARF, Chemo, Hep., AIDS, mental health diagnosis, sleep apnea, morbid obesity)? @ -None Was patient admitted / discharged? Hospital course, mention meds given and route, prescriptions, significant lab abnormalities, going to OR and other pertinent info. @ -81-year-old male presenting with chief complaint of head injury. Patient had a trip and fall and fell hitting his head on a tree stump. No loss of consciousness. Patient is on xarelto. On physical examination no focal neurological deficits. There is a 2 cm laceration to the forehead. Negative CT of the brain and cervical spine. The laceration is repaired. Follow-up with PCP. Report back to ER with any new or worsening symptoms. Discussed return parameters and answered all questions. Patient conveyed verbal understanding and agreed to the plan. I discussed this case in detail with my attending Dr. Flores Undiagnosed new problem with uncertain prognosis? @ -No Drug Therapy requiring intensive monitoring for toxicity (Heparin, Nitro, Insulin, Cardizem)? @ -No Were any procedures done? @ -Laceration repair Diagnosis/symptom? @ -Head injury, facial laceration Acute, or Chronic, or Acute on Chronic? @ -Acute Uncomplicated (without systemic symptoms) or Complicated (systemic symptoms)? @ -Uncomplicated Side effects of treatment? @ -No Exacerbation, Progression, or Severe Exacerbation? @ -No Poses a threat to life or bodily function? How? (Chest pain, [place], [place], pneumonia, PE, COPD, DKA, ARF, appy, cholecystitis, CVA, Diverticulitis, Homicidal, Suicidal, threat to staff... and all critical care pts) @ -No Disposition Clinical Impression: Facial laceration, Head injury Disposition: HOME SELF-CARE Condition: Good Instructions (If sedation given, give patient instructions): Head Injury (ED), Facial Laceration (ED) Additional Instructions: Follow-up with PCP. Report back to ER with any new or worsening symptoms. Sutures may be removed in 3-5 days. Monitor for signs of infection, including but not limited to redness, swelling, warmth, tenderness, discharge. Is patient prescribed a controlled substance at d/c from ED?: No Referrals: Dagoberto Altman MD [Primary Care Provider] - 1-2 days Time of Disposition: 20:37
--- NOTE | 2022-11-17 19:57 | CT ---
EXAMINATION TYPE: CT brain cspine wo con, CT facial bones wo con CT DLP: combined DLP 1140.3 mGycm, Automated exposure control for dose reduction was used. DATE OF EXAM: 11/17/2022 7:16 PM COMPARISON: 08/16/2021.. CLINICAL INDICATION:Male, 81 years old with history of trip and fall, facial wound; fall TECHNIQUE: Brain: Multiple axial CT images of the brain were obtained without IV contrast. Cspine: Axial CT images from the skull base to the inferior aspect of T2 we obtained without intraven ous contrast. Coronal and sagittal reformatted images were also reviewed. Facial: Axial imaging of the facial structures with sagittal and coronal reformats. FINDINGS: Brain: Extra-axial spaces: No abnormal extra-axial fluid collections. Ventricular system: Dilatation in proportion to cerebral atrophy. Cerebral parenchyma: Remote left basal ganglia/caudate nucleus injury. Cerebral atrophy. No acute int raparenchymal hemorrhage or mass effect. The humphries-white junction is well differentiated. Scattered h ypoattenuating areas are seen within the white matter. Cerebellum: Unremarkable. Mass effect: No evidence of midline shift. Intracranial vasculature: Atherosclerotic calcifications of the intracranial vessels. Soft tissues: Right periorbital skin edema/laceration. Calvarium/osseous structures: No depressed skull fracture. Paranasal sinuses and mastoid air cells: Clear. Visualized orbits: Orbital contents are intact. Senile calcific scleral plaques are present. Cervical spine: Fracture: None. Osseous structures: Multilevel degenerative disc disease changes with endplate spurring and disc oste ophyte complex's. Large osteophytes anterior to the spine which impresses upon the posterior esophagu s Vertebral alignment: Grade 1 anterolisthesis of C5 and C6. Spinal canal/Neural Foramina: Disc osteophyte complexes at C4-C5 with at least mild spinal canal sten osis. No evidence for significant neural foraminal stenosis. Neck soft tissues: Prevertebral soft tissues are within normal limits. Calcifications of the nuchal l igament. Other: The airway is patent. Arthrosis course of the arterial vasculature most pronounced at the mejía tid bifurcations. IMPRESSION: 1. No acute intracranial process. 2. Right periorbital skin edema/laceration without evidence of fracture. 3. Nonspecific white matter changes, likely secondary to chronic small vessel ischemic disease. 4. No evidence of cervical spine fracture. 5. [id number] multilevel degenerative disc disease.
[2022-11-17] MEDS ORDERED: LIDOCAINE 1% INJ 10MG/ML (20 ML MDV) SQ ONE (20:18)
[2022-11-17 20:47] VITALS: BP 148/86; RESP 18
== END 2022-11-17 20:50 | disposition home or self-care (01) ==
LOC: EC 18:26
DX: S01.81XA Laceration without foreign body of other part of head, initial encounter (principal); I48.91 Unspecified atrial fibrillation; K21.9 Gastro-esophageal reflux disease without esophagitis; E78.5 Hyperlipidemia, unspecified; I10 Essential (primary) hypertension; M19.90 Unspecified osteoarthritis, unspecified site; Z79.1 Long term (current) use of non-steroidal anti-inflammatories (NSAID); Z79.82 Long term (current) use of aspirin; Z79.899 Other long term (current) drug therapy; Z79.01 Long term (current) use of anticoagulants; Z23 Encounter for immunization
CPT/HCPCS: 72125; 70486; 70450; 90715; 99283; 90471; 12011; J2001

== ENCOUNTER → 2024-04-01 | Outpatient (CLI) | payer MEDICARE ==
[2024-04-01 11:28] LABS: African American GFR (CKD) 71 (>60 ml/min/1.73 sqM); Blood Urea Nitrogen 20 mg/dL (9-20); Non-African American GFR(CKD) 61 (>60 ml/min/1.73 sqM)
--- NOTE | 2024-04-01 13:05 | CT ---
EXAMINATION TYPE: CT angio neck CT DLP: 349.50 mGycm, Automated exposure control for dose reduction was used. DATE OF EXAM: 04/01/2024 12:50 PM COMPARISON: CT brain C-spine 11/17/2022, CTA neck 08/16/2021. CLINICAL INDICATION:Male, 83 years old with history of I65.8 Carotid Stenosis; PHH, carotid stenosis TECHNIQUE: Axially acquired helical CT angiogram of the neck was obtained with contrast utilizing 75 cc of Isovue-370 administered intravenously. Axial images are supplemented with 3D reconstructions wh ich were post-processed at an independent workstation. NASCET criteria used. FINDINGS: CTA NECK: Right Carotid System: The common carotid artery and external carotid artery are patent. Minimal calcified plaque involving the common carotid artery. Large amount of calcified and noncalcified plaque involving the origin of the internal carotid artery with similar approximately 70% stenosis. The remaining portions of the in ternal carotid artery demonstrate normal size without significant narrowing. Left Carotid System: The common carotid artery and external carotid artery are patent. Large amount of calcified plaque at the proximal left internal carotid artery at its origin with approximately stable 90% stenosis. The remaining portions of the internal carotid artery demonstrate normal size without significant narrowi ng. Left vertebral artery is dominant and patent without evidence hemodynamically significant stenosis. T here is again termination of the V4 segment of the right vertebral artery right PICA. The remaining p ortions of the right vertebral artery are patent without significant stenosis. There is a three-vessel aortic arch. Atherosclerotic plaque involving the aortic arch and branches. T he origins of the great vessels are patent. No evidence of hemodynamically significant stenosis. Centrilobular emphysematous changes. Biapical pleural parenchymal scarring. Diffuse bone demineraliza tion. Multilevel degenerative changes of the visualized spine. Bilateral scleral calcifications. IMPRESSION: 1. No evidence of dissection of the cervical internal carotid arteries or vertebral arteries. 2. Approximately 90% stenosis involving the origin of the left internal carotid artery secondary to c alcified plaque. Similar to prior exam 08/16/2021. 3. Approximately 70% stenosis involving the origin of the right internal carotid artery secondary to calcified and noncalcified plaque. Similar to prior exam 08/16/2021. 4. Dominant patent left vertebral artery with redemonstration of termination of the V4 segment of the right vertebral artery into the right PICA. [facility], , 04/01/2024 1:02 PM
== END | disposition home or self-care (01) ==
LOC: RADCTMAIN 10:47
PROVIDERS: ATTEND Internal Medicine Clinical Cardiac Electrophysiology
DX: I71.40 Abdominal aortic aneurysm, without rupture, unspecified (principal); I65.23 Occlusion and stenosis of bilateral carotid arteries
CPT/HCPCS: 82565; 84520; 70498; Q9967

== ENCOUNTER 2024-05-08 09:59 | Observation (INO) | payer MEDICARE ==
--- NOTE | 2024-05-08 10:09 | ED ---
General Adult HPI - General Chief complaint: Chest Pain Stated complaint: Chest pain Time Seen by Provider: 05/08/24 10:01 Source: patient, EMS, RN notes reviewed Mode of arrival: ambulatory Limitations: no limitations - History of Present Illness Initial comments: Patient is an 83-year-old male presenting to the emergency department with concerns with chest discomfort. Onset of symptoms was yesterday afternoon. Discomfort has been steady. Discomfort feels like pressure without radiation. There is minimal associated dyspnea. Discomfort is rated 5/10. No associated nausea. No diaphoresis. Patient believes he may have had similar symptoms pr eviously however they just went away. - Related Data Home Medications Medication Instructions Recorded Confirmed Multivitamins, Thera [Multivitamin 1 tab PO DAILY 09/01/18 11/17/22 (formulary)] Omeprazole 20 mg PO DAILY 09/01/18 11/17/22 Aspirin 81 mg PO BID 09/08/18 11/17/22 carvediloL [Coreg] 3.125 mg PO BID 10/01/21 11/17/22 Finasteride [Proscar] 5 mg PO DAILY 09/11/22 11/17/22 Rivaroxaban [Xarelto] 20 mg PO HS 09/11/22 11/17/22 Zolpidem [Ambien] 5 mg PO HS PRN 09/11/22 11/17/22 Atorvastatin Calcium [Lipitor] 80 mg PO HS 11/17/22 11/17/22 Cholecalciferol [Vitamin D3 (25 50 mcg PO DAILY 11/17/22 11/17/22 Mcg = 1000 Iu)] Allergies Allergy/AdvReac Type Severity Reaction Status Date / Time No Known Allergies Allergy Verified 11/17/22 20:04 Review of Systems ROS Statement: Those systems with pertinent positive or pertinent negative responses have been documented in the HPI. ROS Other: All systems not noted in ROS Statement are negative. Constitutional: Denies: fever Eyes: Denies: eye pain ENT: Denies: ear pain Respiratory: Reports: as per HPI Cardiovascular: Reports: as per HPI, chest pain Gastrointestinal: Denies: abdominal pain Musculoskeletal: Denies: back pain Past Medical History Past Medical History: Atrial Fibrillation, GERD/Reflux, Hearing Disorder / Deafness, Hyperlipidemia, Hypertension, Osteoarthritis (OA), Pneumonia Additional Past Medical History / Comment(s): See Dr Jung's H&P,has difficulty reading,was seen @ [facility] not sure if had any procedures at that time unable to reach Paula Caldwell stepdaughter/POA who was with him, Hx Pneumonia yrs ago. Carotid stenosis. Dizzy on standing History of Any Multi-Drug Resistant Organisms: None Reported Past Surgical History: Hernia Repair, Orthopedic Surgery Additional Past Surgical History / Comment(s): Bilateral rotator cuff repairs. Past Anesthesia/Blood Transfusion Reactions: No Reported Reaction Past Psychological History: No Psychological Hx Reported Smoking Status: Never smoker Past Alcohol Use History: None Reported Past Drug Use History: None Reported - Past Family History Brother(s) Family Medical History: Cancer Sister(s) Family Medical History: Cancer General Exam Limitations: no limitations General appearance: alert, in no apparent distress Head exam: Present: normocephalic Eye exam: Present: normal appearance Neck exam: Present: normal inspection Respiratory exam: Present: normal lung sounds bilaterally. Absent: chest wall tenderness Cardiovascular Exam: Present: irregular rhythm Expanded Peripheral pulses: 2+: Radial (R), Radial (L), Dorsalis Pedis (R), Dorsalis Pedis (L) GI/Abdominal exam: Present: soft. Absent: tenderness Extremities exam: Present: normal inspection. Absent: pedal edema, calf tenderness Neurological exam: Present: alert Psychiatric exam: Present: normal affect, normal mood Skin exam: Present: normal color Course Vital Signs 05/08/24 05/08/24 05/08/24 10:01 10:14 10:19 Temperature 98.2 F Pulse Rate 91 103 H Pulse Rate [ 101 H Group Insurance Special Agent ] Respiratory 15 19 Rate Blood Pressure 116/74 122/96 O2 Sat by Pulse 94 L 94 L Oximetry 05/08/24 11:14 Temperature Pulse Rate 90 Pulse Rate [ Group Insurance Special Agent ] Respiratory 19 Rate Blood Pressure 161/95 O2 Sat by Pulse 95 Oximetry EKG Findings - EKG Results: EKG: interpreted by ERMD (PVCs present.), normal axis, normal QRS, normal ST/T EKG shows: tachycardia, atrial fibrillation Medical Decision Making - Medical Decision Making Was pt. sent in by a medical professional or institution (, PA, BUSINESS TRANSFORMATION ANALYST, urgent care, hospital, or snf...) When possible be specific @ -No Did you speak to anyone other than the patient for history (EMS, parent, family, police, friend...)? What history was obtained from this source @ -No Did you review nursing and triage notes (agree or disagree)? Why? @ -I reviewed and agree with nursing and triage notes Were old charts reviewed (outside hosp., previous admission, EMS record, old EKG, old radiological studies, urgent care reports/EKG's, snf records)? Report findings @ -No old charts were reviewed Differential Diagnosis (chest pain, altered mental status, abdominal pain women, abdominal pain men, vaginal bleeding, weakness, fever, dyspnea, syncope, headache, dizziness, GI bleed, back pain, seizure, CVA, palpatations, mental health, musculoskeletal)? @ -Differential Chest Pain: Stable Angina, Unstable Angina, STEMI, NSTEMI Aortic Dissection, Pneumothorax, Musculoskeletal, Esophageal Spasm GERD, Cholecystitis, Pancreatitis, Zoster, this is not meant to be an all-inclusive list. EKG interpreted by me (3pts min.). @ -As above X-rays interpreted by me (1pt min.). @ -Chest x-ray interpreted by myself does show mild CHF changes CT interpreted by me (1pt min.). @ -None done U/S interpreted by me (1pt. min.). @ -None done What testing was considered but not performed or refused? (CT, X-rays, U/S, labs)? Why? @ -None What meds were considered but not given or refused? Why? @ -None Did you discuss the management of the patient with other professionals (professionals i.e. , PA, BUSINESS TRANSFORMATION ANALYST, lab, RT, psych nurse, geriatric social worker, reforestation worker, teacher, [employer] officer, upper caser)? Give summary @ -Case was discussed with Dr. Rogers who will admit covering Dr. Altman Was smoking cessation discussed for >3mins.? @ -No Was critical care preformed (if so, how long)? @ -No Were there social determinants of health that impacted care today? How? (Homelessness, low income, unemployed, alcoholism, drug addiction, transportation, low edu. Level, literacy, decrease access to med. care, [facility], rehab)? @ -No Was there de-escalation of care discussed even if they declined (Discuss DNR or withdrawal of care, Hospice)? DNR status @ -No What co-morbidities impacted this encounter? (DM, HTN, Smoking, COPD, CAD, Cancer, CVA, ARF, Chemo, Hep., AIDS, mental health diagnosis, sleep apnea, morbi d obesity)? @ -None Was patient admitted / discharged? Hospital course, mention meds given and rout e, prescriptions, significant lab abnormalities, going to OR and other pertinent info. @ -Patient presents with chest discomfort with some mild dyspnea since yesterday. Initial troponin unremarkable. X-ray and BNP concerning for mild CHF. Patient will be admitted with cardiac consult. Patient reevaluated, patient and family updated. Admission orders written. Undiagnosed new problem with uncertain prognosis? @ -No Drug Therapy requiring intensive monitoring for toxicity (Heparin, Nitro, In sulin, Cardizem)? @ -No Were any procedures done? @ -No Diagnosis/symptom? @ -Chest pain Acute, or Chronic, or Acute on Chronic? @ -Acute Uncomplicated (without systemic symptoms) or Complicated (systemic symptoms)? @ -Complicated with mild CHF and hypomagnesemia. Magnesium was replaced IV Side effects of treatment? @ -No Exacerbation, Progression, or Severe Exacerbation? @ -No Poses a threat to life or bodily function? How? (Chest pain, [place], [place], pneumonia, PE, COPD, DKA, ARF, appy, cholecystitis, CVA, Diverticulitis, Homicidal, Suicidal, threat to staff... and all critical care pts) @ -Threat to cardiac function - Lab Data Result diagrams: 05/08/24 10:09 05/08/24 10:09 Lab Results 05/08/24 05/08/24 05/08/24 Range/Units 10:09 10:09 10:09 WBC 11.2 H (3.8-10.6) k/uL RBC 5.11 (4.30-5.90) m/uL Hgb 15.4 (13.0-17.5) gm/dL Hct 45.7 (39.0-53.0) % MCV 89.5 (80.0-100.0) fL MCH 30.1 (25.0-35.0) pg MCHC 33.6 (31.0-37.0) g/dL RDW 14.1 (11.5-15.5) % Plt Count 189 (150-450) k/uL MPV 8.6 Neutrophils % 80 % Lymphocytes % 10 % Monocytes % 6 % Eosinophils % 2 % Basophils % 0 % Neutrophils # 8.9 H (1.3-7.7) k/uL Lymphocytes # 1.2 (1.0-4.8) k/uL Monocytes # 0.7 (0-1.0) k/uL Eosinophils # 0.3 (0-0.7) k/uL Basophils # 0.0 (0-0.2) k/uL PT 15.9 H (10.0-12.5) sec INR 1.5 H (<1.2) APTT 32.8 H (22.0-30.0) sec Sodium 139 (137-145) mmol/L Potassium 4.5 (3.5-5.1) mmol/L Chloride 106 (98-107) mmol/L Carbon Dioxide 23 (22-30) mmol/L Anion Gap 10 mmol/L BUN 21 H (9-20) mg/dL Creatinine 1.08 (0.66-1.25) mg/dL Est GFR (CKD-EPI)AfAm 73 (>60 ml/min/1.73 sqM) Est GFR (CKD-EPI)NonAf 63 (>60 ml/min/1.73 sqM) Glucose 111 H (74-99) mg/dL Calcium 9.2 (8.4-10.2) mg/dL Magnesium 1.3 L (1.6-2.3) mg/dL Total Bilirubin 3.3 H (0.2-1.3) mg/dL AST 28 (17-59) U/L ALT 23 (4-49) U/L Alkaline Phosphatase 83 (38-126) U/L Troponin I (0.000-0.034) ng/mL NT-Pro-B Natriuret Pep 3240 pg/mL Total Protein 6.5 (6.3-8.2) g/dL Albumin 4.1 (3.5-5.0) g/dL Amylase 67 (30-110) U/L Lipase 94 (23-300) U/L 05/08/24 Range/Units 10:09 WBC (3.8-10.6) k/uL RBC (4.30-5.90) m/uL Hgb (13.0-17.5) gm/dL Hct (39.0-53.0) % MCV (80.0-100.0) fL MCH (25.0-35.0) pg MCHC (31.0-37.0) g/dL RDW (11.5-15.5) % Plt Count (150-450) k/uL MPV Neutrophils % % Lymphocytes % % Monocytes % % Eosinophils % % Basophils % % Neutrophils # (1.3-7.7) k/uL Lymphocytes # (1.0-4.8) k/uL Monocytes # (0-1.0) k/uL Eosinophils # (0-0.7) k/uL Basophils # (0-0.2) k/uL PT (10.0-12.5) sec INR (<1.2) APTT (22.0-30.0) sec Sodium (137-145) mmol/L Potassium (3.5-5.1) mmol/L Chloride (98-107) mmol/L Carbon Dioxide (22-30) mmol/L Anion Gap mmol/L BUN (9-20) mg/dL Creatinine (0.66-1.25) mg/dL Est GFR (CKD-EPI)AfAm (>60 ml/min/1.73 sqM) Est GFR (CKD-EPI)NonAf (>60 ml/min/1.73 sqM) Glucose (74-99) mg/dL Calcium (8.4-10.2) mg/dL Magnesium (1.6-2.3) mg/dL Total Bilirubin (0.2-1.3) mg/dL AST (17-59) U/L ALT (4-49) U/L Alkaline Phosphatase (38-126) U/L Troponin I <0.012 (0.000-0.034) ng/mL NT-Pro-B Natriuret Pep pg/mL Total Protein (6.3-8.2) g/dL Albumin (3.5-5.0) g/dL Amylase (30-110) U/L Lipase (23-300) U/L Disposition Clinical Impression: Chest pain Disposition: ADMITTED IP TO THIS HOSP Is patient prescribed a controlled substance at d/c from ED?: No Referrals: Dagoberto Altman MD [Primary Care Provider] - 1-2 days Time of Disposition: 11:36
[2024-05-08] MEDS: ASPIRIN 81 MG PO STA (10:11)
[2024-05-08] MEDS: NITROGLYCERIN OINT 1 INCH/GM PACKET TOPICAL STA (10:12)
[2024-05-08 10:28] LABS: Basophils % (A) 0 %; Eosinophils # (A) 0.3 k/uL (0-0.7); Eosinophils % (A) 2 %; HCT 45.7 % (39.0-53.0); HGB 15.4 gm/dL (13.0-17.5); Lymphocytes # (A) 1.2 k/uL (1.0-4.8); Lymphocytes % (A) 10 %; MCH 30.1 pg (25.0-35.0); MCHC 33.6 g/dL (31.0-37.0); MCV 89.5 fL (80.0-100.0); Mean Platelet Volume 8.6; Monocytes # (A) 0.7 k/uL (0-1.0); Monocytes % (A) 6 %; Neutrophils # (A) 8.9 k/uL (1.3-7.7); Neutrophils % (A) 80 %; Platelet Count 189 k/uL (150-450); RBC 5.11 m/uL (4.30-5.90); RDW 14.1 % (11.5-15.5); WBC 11.2 k/uL (3.8-10.6)
--- NOTE | 2024-05-08 10:29 | XR ---
Chest, 2 view. HISTORY: Chest pain COMPARISON: 07/06/2022 TECHNIQUE: PA and lateral views the chest are obtained. FINDINGS: There is interval development of mild pulmonary vascular congestion and interstitial edema and small right pleural effusion. Heart size is normal. There is a loop recorder. There is no pneumothorax. There is no airspace consolidation. There are healed right rib fractures otherwise the osseous structures are intact. IMPRESSION: Findings most consistent with development of mild CHF. [facility], , 05/08/2024 10:27 AM
[2024-05-08 10:42] LABS: ALT 23 U/L (4-49); AST 28 U/L (17-59); African American GFR (CKD) 73 (>60 ml/min/1.73 sqM); Albumin 4.1 g/dL (3.5-5.0); Alkaline Phosphatase 83 U/L (38-126); Amylase 67 U/L (30-110); Anion Gap 10 mmol/L; Blood Urea Nitrogen 21 mg/dL (9-20); Calcium 9.2 mg/dL (8.4-10.2); Carbon Dioxide 23 mmol/L (22-30); Chloride 106 mmol/L (98-107); Glucose 111 mg/dL (74-99); Lipase 94 U/L (23-300); Magnesium 1.3 mg/dL (1.6-2.3); Non-African American GFR(CKD) 63 (>60 ml/min/1.73 sqM); Potassium 4.5 mmol/L (3.5-5.1); Sodium 139 mmol/L (137-145); Total Bilirubin 3.3 mg/dL (0.2-1.3); Total Protein 6.5 g/dL (6.3-8.2)
[2024-05-08 10:48] LABS: INR 1.5 (<1.2); Partial Thromboplastin Time 32.8 sec (22.0-30.0); Prothrombin Time 15.9 sec (10.0-12.5)
[2024-05-08 10:49] LABS: NT-Pro-B-Type Natriuretic Pept 3240 pg/mL
[2024-05-08] MEDS: MAGNESIUM SULFATE-D5W PMX 1 GM in DEXTROSE/WATER 1 100ML.BAG IVPB ONE (11:12)
[2024-05-08] MEDS ORDERED: NITROGLYCERIN SL TABS 0.4 MG TAB SUBLINGUAL PRN (11:36)
[2024-05-08] MEDS: NITROGLYCERIN OINT 1 INCH/GM PACKET TOPICAL SCH (12:05)
[2024-05-08] MEDS ORDERED: ALBUTEROL HFA INHALER INHALATION PRN (12:13)
[2024-05-08] MEDS: FUROSEMIDE 10 MG/ML 4 ML VIAL IV STA (12:51)
[2024-05-08] MEDS ORDERED: Magnesium Replacement Protocol 1 EACH MISC MISCELLANE PRN (16:08)
[2024-05-08] MEDS ORDERED: Potassium Replacement Protocol 1 EACH MISC MISCELLANE PRN (16:08)
[2024-05-08] MEDS: RIVAROXABAN 15 MG TAB PO SCH (18:16)
[2024-05-08] MEDS: carvediloL 3.125 MG TAB PO SCH (21:15)
[2024-05-08] MEDS: ATORVASTATIN 80 MG TAB PO SCH (21:15)
--- NOTE | 2024-05-09 02:33 | HP ---
HISTORY AND PHYSICAL CHIEF COMPLAINT: Chest pain. HISTORY OF PRESENT ILLNESS: This is an 83-year-old gentleman with a past medical history of multiple medical problems including atrial fibrillation, hypertension, hyperlipidemia, being followed by Dr. Altman in the outpatient setting, was complaining of chest pain. The pain was felt in the lower part of the chest and upper epigastrium. It is more like a pressure without radiation. Initial troponins are negative and the EKG showed multiple PVCs, multifocal. There is no history of any fever, rigors, or chills at this time. PAST MEDICAL HISTORY: Atrial fibrillation, hypertension, hyperlipidemia. Rest of the history and rest of the chart is also reviewed. HOME MEDICATIONS: Reviewed include Coreg, dose and rest of medications reviewed. ALLERGIES: None. FAMILY HISTORY: History of cancer in the family. SOCIAL HISTORY: No smoking or alcohol. REVIEW OF SYSTEMS: Fourteen-point review of systems is negative except as mentioned earlier. PHYSICAL EXAMINATION: VITAL SIGNS: Pulse 96, blood pressure 108/89, respiratory rate 23. HEENT: Conjunctivae normal. NECK: No JVD. CARDIOVASCULAR: S1, S2. RESPIRATIONS: Breath sounds diminished at the bases. A few scattered rhonchi. ABDOMEN: Soft. NERVOUS SYSTEM: Nonfocal. LABORATORY DATA: Magnesium 1.3, bilirubin is 3.2. ASSESSMENT: 1. Chest pain, possible unstable angina. 2. Multifocal PVCs. 3. Atrial fibrillation history. 4. Hypertension. 5. Hyperlipidemia. 6. Multiple complex medical issues. RECOMMENDATIONS: Recommend to continue current management. Continue symptomatic treatment. Unstable angina protocol. Cardiology consultation. Rule out myocardial infarction. Resume the home medications. Dr. Altman will follow. MMODL / IJN: [id number] /
[2024-05-09 07:46] VITALS: BP 151/73; PULSE 54; RESP 16; TEMP 97.4
--- NOTE | 2024-05-09 08:27 | P.PN ---
Subjective Progress Note Date: 05/09/24 This is an 83-year-old male who presented to the emergency department with complaints of chest pain. Patient had chest pain yesterday afternoon and the discomfort was steady, he describes it as pressure-like without any radiation. Patient denies any diaphoresis or nausea. He is seen this morning lying in bed resting comfortably. He reports that he pain and pressure is currently gone. Troponins have been negative. Cardiology has been consulted. Objective - Vital Signs Vital signs: Vital Signs Temp 97.4 F L 05/09/24 07:00 Pulse 54 L 05/09/24 07:00 Resp 16 05/09/24 07:00 BP 151/73 05/09/24 07:00 Pulse Ox 95 05/09/24 07:00 FiO2 Intake & Output 05/08/24 05/09/24 05/09/24 18:59 06:59 18:59 Weight 68.039 kg Other: Voiding Method Urinal Toilet # Voids 1 1 # Bowel Movements 1 - Constitutional General appearance: Present: cooperative, no acute distress - EENT Eyes: Present: PERRLA - Neck Neck: Present: normal ROM. Absent: lymphadenopathy, rigidity - Respiratory Respiratory: bilateral: CTA - Cardiovascular Heart sounds: normal: S1, S2 - Gastrointestinal General gastrointestinal: Present: soft. Absent: tenderness - Integumentary Integumentary: Present: normal, normal turgor - Psychiatric Psychiatric: Present: A&O x's 3, appropriate affect, intact judgment & insight - Labs CBC & Chem 7: 05/08/24 10:09 05/08/24 10:09 Labs: Abnormal Lab Results - Last 24 Hours (Table) 05/08/24 05/08/24 05/08/24 Range/Units 10:09 10:09 10:09 WBC 11.2 H (3.8-10.6) k/uL Neutrophils # 8.9 H (1.3-7.7) k/uL PT 15.9 H (10.0-12.5) sec INR 1.5 H (<1.2) APTT 32.8 H (22.0-30.0) sec BUN 21 H (9-20) mg/dL Glucose 111 H (74-99) mg/dL Magnesium 1.3 L (1.6-2.3) mg/dL Total Bilirubin 3.3 H (0.2-1.3) mg/dL Assessment and Plan (1) Chest pain Current Visit: Yes Status: Acute Code(s): R07.9 - CHEST PAIN, UNSPECIFIED SNOMED Code(s): 88970083 (2) Hypertension Current Visit: Yes Status: Acute Code(s): I10 - ESSENTIAL (PRIMARY) HYPERTENSION SNOMED Code(s): 13555386 (3) Hyperlipidemia Current Visit: Yes Status: Acute Code(s): E78.5 - HYPERLIPIDEMIA, UNSPECIFIED SNOMED Code(s): 73187669 (4) History of atrial fibrillation Current Visit: Yes Status: Acute Code(s): Z86.79 - PERSONAL HISTORY OF OTHER DISEASES OF THE CIRCULATORY SYSTEM SNOMED Code(s): 075624037 Plan: Await recommendations from cardiology. Patient seen and evaluated by nurse practitioner, physician in agreement with plan.
[2024-05-09 08:42] LABS: Chol/HDL Ratio 2.42 Ratio; LDL Cholesterol,Calculated 34.6 mg/dL (0.0-131.0); Magnesium 1.6 mg/dL (1.5-2.4); VLDL Calculation 12.44 mg/dL (5.00-40.00)
[2024-05-09 08:50] LABS: BUN/Creat Ratio 19.17 Ratio (12.00-20.00); Calcium 9.2 mg/dL (8.7-10.3); Carbon Dioxide 22.7 mmol/L (21.6-31.8); Chloride 105 mmol/L (96-109); Glucose 91 mg/dL (70-110); Sodium 141 mmol/L (135-145)
[2024-05-09] MEDS ORDERED: ASPIRIN 325 MG TAB PO SCH (09:00)
[2024-05-09] MEDS: FINASTERIDE 5 MG TAB PO SCH (09:11)
[2024-05-09] MEDS: PANTOPRAZOLE 40 MG TABLET PO SCH (09:11)
[2024-05-09] MEDS: ASPIRIN 81 MG PO SCH (09:11)
[2024-05-09 10:10] LABS: Basophils # (A) 0.08 X 10*3/uL (0.00-0.10); Basophils % (A) 0.7 %; Eosinophils # (A) 0.15 X 10*3/uL (0.04-0.35); Eosinophils % (A) 1.3 %; HCT 47.4 % (39.6-50.0); HGB 15.7 g/dL (13.0-17.0); Lymphocytes # (A) 1.55 X 10*3/uL (0.90-5.00); Lymphocytes % (A) 13.1 %; MCH 29.1 pg (27.0-32.0); MCHC 33.1 g/dL (32.0-37.0); MCV 87.9 FL (80.0-97.0); Monocytes # (A) 1.33 X 10*3/uL (0.20-1.00); Monocytes % (A) 11.2 %; NRBC Per 100 WBC 0 X 10*3/uL (0.00-0.01); Neutrophils # (A) 8.71 X 10*3/uL (1.80-7.70); Neutrophils % (A) 73.3 %; Platelet Count 184 X 10*3/uL (140-440); RBC 5.39 X 10*6/uL (4.40-5.60); RDW 14.6 % (11.5-14.5); WBC 11.87 X 10*3/uL (4.50-10.00)
--- NOTE | 2024-05-09 10:26 | P.CRDCN ---
History of Present Illness History of present illness: HISTORY OF PRESENTING ILLNESS This is a pleasant 83-year-old male past medical history significant for persistent atrial fibrillation on Xarelto, nonischemic cardiomyopathy, moder ate mitral and tricuspid regurgitation, atrial tachycardia, hypertension, dyslipidemia, loop recorder implantation 2022 secondary to syncope and bilateral carotid stenosis. He follows in the office with Dr. Bocanegra. We have been asked to see in consultation for shortness of breath. He states he completed antibiotics for outpatient pneumonia per his PCP on Thursday. He woke up Thursday morning and while getting dressed he felt short of breath. He was given 1 dose of IV Lasix in the emergency department. He has no further symptoms of shortness of breath. He denies any symptoms of chest pain, dizziness or palpitations. He has no major bleeding on Xarelto. DIAGNOSTICS EKG reveals on admission reveals atrial fibs heart rate of 106 repeat this morning rate is much better controlled with frequent PVCs Telemetry tracings indicate persistent atrial fib with no significant bradycardia, ongoing PVCs and short runs of nonsustained VT. Chest xray mild CHF. Laboratory reviewed, WBC 11.8, hemoglobin 15.7, platelets 184, sodium 141, potassium 4, creatinine 1.2, magnesium 1.6, cardiac enzymes negative x 3, NT proBNP 3240, LDL 34.6. Current cardiac medications include aspirin 81 mg daily, Lipitor 80 mg at bedtime, Xarelto 20 mg daily and carvedilol 3.125 mg twice daily. He underwent cardiac catheterization in 2018 revealing mild nonobstructive coronary artery disease. Most recent echocardiogram obtained in the office May 2022 revealed ejection fraction 55% with moderate MR, mild to moderate AR, moderate TR and RVSP of 35 with mild LVH. Most recent stress test was a Lexiscan stress test performed in the office June 2022 with ejection fraction 55% and no evidence of reversible ischemia. REVIEW OF SYSTEMS At the time of my exam: CONSTITUTIONAL: Denies fever or chills. CARDIOVASCULAR: Denies chest pain, shortness of breath, orthopnea, PND or palpitations. RESPIRATORY: Denies cough. GASTROINTESTINAL: Denies abdominal pain, diarrhea, constipation, nausea or vomiting. MUSCULOSKELETAL: Denies myalgias. NEUROLOGIC: Denies numbness, tingling, headache or weakness. ENDOCRINE: Denies fatigue, weight change, polydipsia or polyurina. GENITOURINARY: Denies burning, hematuria or urgency with micturation. HEMATOLOGIC: Denies history of anemia or bleeding. PHYSICAL EXAMINATION Blood pressure 151/73 heart rate 54 afebrile and maintaining oxygen saturation on room air. CONSTITUTIONAL: No apparent distress. HEENT: Head is normocephalic. Pupils are equal, round. Sclerae anicteric. Mucous membranes of the mouth are moist. No JVD. No carotid bruit. CHEST EXAMINATION: Lungs are clear to auscultation. No chest wall tenderness is noted on palpation or with deep breathing. HEART EXAMINATION: Irregular rate and rhythm. S1, S2 heard. Soft systolic ejection murmur at the base, no gallops or rub. ABDOMEN: Soft, nontender. EXTREMITIES: 2+ peripheral pulses, no lower extremity edema and no calf tenderness. NEUROLOGIC EXAMINATION: Patient is awake, alert and oriented x3. ASSESSMENT Shortness of breath, likely related to URI with mild exacerbation of acute on chronic diastolic heart failure improved after one dose of IV lasix Persistent atrial fibrillation on Xarelto with good rate control Hypertension Dyslipidemia PLAN Add small dose of oral Lasix, 20 mg daily. Stable for discharge from a cardiac perspective. Follow-up with Dr. Jung in 1 to 2 weeks. Thank you kindly for this consultation. Nurse Practitioner note has been reviewed, I agree with a documented findings and plan of care. Patient was seen and examined. Past Medical History Past Medical History: Atrial Fibrillation, GERD/Reflux, Hearing Disorder / Deaf ness, Hyperlipidemia, Hypertension, Osteoarthritis (OA), Pneumonia Additional Past Medical History / Comment(s): See Dr Jung's H&P,has difficulty reading,was seen @ [facility] ER June 2022 and transferred to [facility] not sure if had any procedures at that time unable to reach Paula Caldwell stepdaughter/POA who was with him, Hx Pneumonia yrs ago. Carotid stenosis. Dizzy on standing History of Any Multi-Drug Resistant Organisms: None Reported Past Surgical History: Hernia Repair, Orthopedic Surgery Additional Past Surgical History / Comment(s): Bilateral rotator cuff repair, skin cancer removed Past Anesthesia/Blood Transfusion Reactions: No Reported Reaction Smoking Status: Never smoker - Past Family History Brother(s) Family Medical History: Cancer Sister(s) Family Medical History: Cancer Medications and Allergies Home Medications Medication Instructions Recorded Confirmed Type Omeprazole 20 mg PO DAILY 09/01/18 05/08/24 History Aspirin 81 mg PO DAILY 09/08/18 05/08/24 History carvediloL [Coreg] 3.125 mg PO BID 10/01/21 05/08/24 History Finasteride [Proscar] 5 mg PO DAILY 09/11/22 05/08/24 History Rivaroxaban [Xarelto] 20 mg PO W/SUPPER 09/11/22 05/08/24 History Atorvastatin Calcium [Lipitor] 80 mg PO HS 11/17/22 05/08/24 History Albuterol Inhaler [Ventolin Hfa 2 puff INHALATION RT-Q6H PRN 05/08/24 05/08/24 History Inhaler] Allergies Allergy/AdvReac Type Severity Reaction Status Date / Time No Known Allergies Allergy Verified 05/08/24 11:38 Physical Exam Vitals: Vital Signs Temp Pulse Pulse Pulse Resp BP BP 05/09/24 07:00 97.4 F L 54 L 16 151/73 05/09/24 01:30 98.2 F 86 18 103/65 05/08/24 18:54 97.4 F L 56 L 18 136/71 05/08/24 17:41 97.4 F L 110 H 18 141/78 05/08/24 16:03 97.6 F 88 17 119/62 05/08/24 14:40 96 23 108/89 05/08/24 12:51 97.6 F 78 12 146/89 05/08/24 11:14 90 19 161/95 05/08/24 10:19 101 H 05/08/24 10:14 103 H 19 122/96 05/08/24 10:01 98.2 F 91 15 116/74 Pulse Ox 05/09/24 07:00 95 05/09/24 01:30 93 L 05/08/24 18:54 91 L 05/08/24 17:41 99 05/08/24 16:03 97 05/08/24 14:40 96 05/08/24 12:51 97 05/08/24 11:14 95 05/08/24 10:19 05/08/24 10:14 94 L 05/08/24 10:01 94 L Intake and Output 05/08/24 05/09/24 05/09/24 22:59 06:59 14:59 Other: Voiding Method Toilet Toilet # Voids 2 1 # Bowel Movements 1 Weight 68.039 kg Results 05/09/24 04:59 05/09/24 04:59 Cardiac Enzymes 05/08/24 05/08/24 05/08/24 Range/Units 10:09 10:09 18:53 AST 28 (17-59) U/L Troponin I <0.012 <0.012 (0.000-0.034) ng/mL 05/08/24 Range/Units 22:02 AST (17-59) U/L Troponin I <0.012 (0.000-0.034) ng/mL Coagulation 05/08/24 Range/Units 10:09 PT 15.9 H (10.0-12.5) sec APTT 32.8 H (22.0-30.0) sec CBC 05/08/24 Range/Units 10:09 WBC 11.2 H (3.8-10.6) k/uL RBC 5.11 (4.30-5.90) m/uL Hgb 15.4 (13.0-17.5) gm/dL Hct 45.7 (39.0-53.0) % Plt Count 189 (150-450) k/uL Comprehensive Metabolic Panel 05/08/24 Range/Units 10:09 Sodium 139 (137-145) mmol/L Potassium 4.5 (3.5-5.1) mmol/L Chloride 106 (98-107) mmol/L Carbon Dioxide 23 (22-30) mmol/L BUN 21 H (9-20) mg/dL Creatinine 1.08 (0.66-1.25) mg/dL Glucose 111 H (74-99) mg/dL Calcium 9.2 (8.4-10.2) mg/dL AST 28 (17-59) U/L ALT 23 (4-49) U/L Alkaline Phosphatase 83 (38-126) U/L Total Protein 6.5 (6.3-8.2) g/dL Albumin 4.1 (3.5-5.0) g/dL Current Medications Generic Name Dose Route Start Last Admin Trade Name Freq PRN Reason Stop Dose Admin Albuterol Sulfate 2 puff 05/08/24 12:13 Albuterol Hfa Inhaler INHALATION RT-Q6H PRN Shortness Of Breath Aspirin 325 mg 05/09/24 09:00 Aspirin 325 Mg Tab PO DAILY [facility] Atorvastatin Calcium 80 mg 05/08/24 21:00 05/08/24 21:15 Atorvastatin 80 Mg Tab PO 80 mg HS [facility] Administration Carvedilol 3.125 mg 05/08/24 21:00 05/08/24 21:15 Carvedilol 3.125 Mg Tab PO 3.125 mg BID [facility] Administration Finasteride 5 mg 05/09/24 09:00 Finasteride 5 Mg Tab PO DAILY [facility] Miscellaneous Information 1 each 05/08/24 16:08 Magnesium Replacement Protocol 1 Each [facility] MISCELLANE DAILY PRN Per Protocol Protocol Miscellaneous Information 1 each 05/08/24 16:08 Potassium Replacement Protocol 1 Each [facility] MISCELLANE DAILY PRN Per Protocol Protocol Nitroglycerin 0.4 mg 05/08/24 11:36 Nitroglycerin Sl Tabs 0.4 Mg Tab SUBLINGUAL Q5M PRN Chest Pain Nitroglycerin 1 inch 05/08/24 12:00 05/09/24 05:50 Nitroglycerin Oint 1 Inch/Gm Packet TOPICAL Not Given Q6HR [facility] Pantoprazole Sodium 40 mg 05/09/24 07:30 Pantoprazole 40 Mg Tablet PO DAILY@0730 [facility] Rivaroxaban 15 mg 05/08/24 17:30 05/08/24 18:16 Rivaroxaban 15 Mg Tab PO 15 mg W/SUPPER [facility] Administration Protocol Intake and Output 05/08/24 05/09/24 05/09/24 22:59 06:59 14:59 Other: Voiding Method Toilet Toilet # Voids 2 1 # Bowel Movements 1 Weight 68.039 kg 05/08/24 10:09 05/08/24 10:09
[2024-05-09] MEDS: FUROSEMIDE 20 MG TAB PO SCH (10:52)
--- NOTE | 2024-05-09 13:03 | P.DS ---
Providers Date of admission: 05/08/24 11:36 Attending physician: Dagoberto Altman Consults: 05/08/24 11:36 Consult Physician Urgent Consulting Provider: Eben Shipman Consult Reason/Comments: cp Do you want consulting provider notified?: Yes Primary care physician: Dagoberto Altman Hospital Course: The patient was admitted for chest pain. HI ruled out. Cardiology cleared the patient and he is discharged in stable condition to followup in 3 days. Patient Condition at Discharge: Good Plan - Discharge Summary Discharge Rx Participant: Yes New Discharge Prescriptions: New Furosemide [Lasix] 20 mg PO DAILY #30 tab Furosemide [Lasix] 20 mg PO DAILY #30 tab Continue Omeprazole 20 mg PO DAILY Aspirin 81 mg PO DAILY carvediloL [Coreg] 3.125 mg PO BID Finasteride [Proscar] 5 mg PO DAILY Rivaroxaban [Xarelto] 20 mg PO W/SUPPER Albuterol Inhaler [Ventolin Hfa Inhaler] 2 puff INHALATION RT-Q6H PRN PRN Reason: Shortness Of Breath Atorvastatin Calcium [Lipitor] 80 mg PO HS Discharge Medication List Omeprazole 20 mg PO DAILY 09/01/18 [History] Aspirin 81 mg PO DAILY 09/08/18 [History] carvediloL [Coreg] 3.125 mg PO BID 10/01/21 [History] Finasteride [Proscar] 5 mg PO DAILY 09/11/22 [History] Rivaroxaban [Xarelto] 20 mg PO W/SUPPER 09/11/22 [History] Atorvastatin Calcium [Lipitor] 80 mg PO HS 11/17/22 [History] Albuterol Inhaler [Ventolin Hfa Inhaler] 2 puff INHALATION RT-Q6H PRN 05/08/24 [History] Furosemide [Lasix] 20 mg PO DAILY #30 tab 05/09/24 [Rx] Furosemide [Lasix] 20 mg PO DAILY #30 tab 05/09/24 [Rx] Follow up Appointment(s)/Referral(s): Dagoberto Altman MD [Primary Care Provider] - 3 Days Discharge Disposition: HOME SELF-CARE
== END 2024-05-09 13:39 | disposition home or self-care (01) ==
LOC: EC 09:59 → 6NMEDSUR 11:36
PROVIDERS: ADMIT Family Medicine; ATTEND Family Medicine
DX: R07.89 Other chest pain (principal); I48.19 Other persistent atrial fibrillation; K21.9 Gastro-esophageal reflux disease without esophagitis; E78.5 Hyperlipidemia, unspecified; I11.0 Hypertensive heart disease with heart failure; I50.33 Acute on chronic diastolic (congestive) heart failure; I42.8 Other cardiomyopathies; I25.10 Atherosclerotic heart disease of native coronary artery without angina pectoris; I49.3 Ventricular premature depolarization; Z85.828 Personal history of other malignant neoplasm of skin; Z79.01 Long term (current) use of anticoagulants; Z79.82 Long term (current) use of aspirin; Z79.899 Other long term (current) drug therapy
CPT/HCPCS: 96365; 96375; 99285; 36415; 93005; 83880; 80061; 80053; 80048; 82150; 83690; 83735 ×2; 84484; 85025 ×2; 85610; 85730; 71046; G0378 ×2; S0138; J1940; J3475